=== PATIENT | female | born 1995 | race Caucasian/White ===

== ENCOUNTER 2023-12-31 10:16 | Observation (INO) | payer OTHER ==
[~2023-12-31] VITALS: Ht 144.8 cm; Wt 64.5 kg
[2023-12-31] MEDS: HEPARIN SOD (PORCINE) 5000UNITS/ML 1ML VIAL/SYRINGE SQ ONE (06:55)
[~2023-12-31 10:16] MED LIST: BUPR150T12 PO; BUSP5TA PO; FLUO20CA22 PO; LISD30CA PO; LOVE1INJ2 SC
[2023-12-31] MEDS ORDERED: LR 1,000 ML IV SCH (10:35)
[2023-12-31] MEDS ORDERED: dexmedeTOMIDine (4MCG/ML)200MCG/50ML BTL (PRECEDEX) As Ordered ONE (12:23)
[2023-12-31] MEDS ORDERED: propofoL 200 MG/20 ML VIAL As Ordered ONE (12:23)
[2023-12-31] MEDS ORDERED: ROCURONIUM BROMIDE 50MG/5ML VIAL As Ordered ONE (12:23)
[2023-12-31] MEDS ORDERED: MIDAZOLAM INJ 2MG/2ML VIAL As Ordered ONE (12:23)
[2023-12-31] MEDS ORDERED: LIDOCAINE 2% 100MG/5ML SDV (FOR ANES.) As Ordered ONE (12:23)
[2023-12-31] MEDS ORDERED: fentaNYL 250 MCG/5 ML INJECTION As Ordered ONE (12:23)
[2023-12-31] MEDS ORDERED: ONDANSETRON 4MG 2ML VIAL As Ordered ONE (12:23)
[2023-12-31] MEDS ORDERED: SEVOFLURANE INHAL SOLN 250 ML BTL As Ordered ONE (13:11)
[2023-12-31] MEDS: SCOPOLAMINE 1MG TRANSDERMAL PATCH TOP ONE (13:20)
[2023-12-31] MEDS: ceFAZolin SOD 2 GM in IV 1 EA IV ONE (14:04)
[2023-12-31] MEDS: GENTAMICIN SULF 80MG/2ML VIAL As Ordered ONE (14:21)
[2023-12-31] MEDS ORDERED: LACRILUBE (AKWA TEARS) OPHTH OINT 3.5GM As Ordered ONE (14:27)
[2023-12-31] MEDS ORDERED: ACETAMINOPHEN 1000MG 100ML IV BAG As Ordered ONE (14:27)
[2023-12-31] MEDS ORDERED: HYDROmorphone HCL 2MG/ML 1ML VIAL As Ordered ONE (14:58)
[2023-12-31] MEDS ORDERED: SUGAMMADEX SODIUM 500 MG/5 ML VIAL (BRIDION) As Ordered ONE (14:58)
[2023-12-31] MEDS ORDERED: fentaNYL 100 MCG/2 ML INJECTION IV PRN (17:35)
[2023-12-31] MEDS ORDERED: HYDROMORPHONE HCL 0.5 MG/ 0.5 ML SYRINGE IV PRN (17:35)
[2023-12-31] MEDS ORDERED: oxyCODONE 5MG TAB PO PRN (17:35)
[2023-12-31] MEDS ORDERED: ACETAMINOPHEN TAB 650MG DOSE (2X325MG) PO PRN (17:55)
[2023-12-31] MEDS ORDERED: traMADol 50 MG TAB PO PRN (17:55)
[2023-12-31] MEDS: ONDANSETRON 4MG 2ML VIAL IV PRN ×2 (18:43→22:40)
[2023-12-31] MEDS: LR 1,000 ML IV SCH ×2 (18:46→20:34)
[2023-12-31 20:30] VITALS: BP 132/70; TEMP 97; O2SAT 97
[2023-12-31 20:45] VITALS: BP 117/79; TEMP 97.2; O2SAT 96
[2023-12-31] MEDS: ceFAZolin SOD 1 GM in D5W MINI-BAG PLUS 50 ML IV SCH (20:46)
[2023-12-31] MEDS: ENOXAPARIN 40MG/0.4ML SYRINGE (J1650 PER 10MG) SC SCH (20:47)
[2023-12-31] MEDS: PERCOCET 5MG/325MG TAB PO PRN (20:52)
[2023-12-31 21:46] VITALS: BP 121/77; TEMP 97; O2SAT 96
[2023-12-31 22:45] VITALS: BP 116/72; TEMP 97.2; O2SAT 97
[2023-12-31 23:45] VITALS: BP 112/71; TEMP 97.3; O2SAT 96
[2024-01-01 00:47] VITALS: BP 107/69; TEMP 97.6; O2SAT 95
[2024-01-01 01:47] VITALS: BP 107/69; TEMP 97.2; O2SAT 97
[2024-01-01 02:48] VITALS: BP 109/69; TEMP 97; O2SAT 97
[2024-01-01 03:48] VITALS: BP 124/80; TEMP 97.8; O2SAT 98
[2024-01-01 06:19] VITALS: BP 108/75; TEMP 97.8; O2SAT 97
[2024-01-01] MEDS ORDERED: PERCOCET PO (13:14)
== END 2024-01-01 14:25 | disposition home or self-care (01) ==
LOC: M SDC 10:16 → M RR INP 18:00 → M MS5PR 20:15
PROVIDERS: ADMIT Plastic Surgery Surgery of the Hand; ATTEND Plastic Surgery Surgery of the Hand
DX: N62 Hypertrophy of breast (principal); M54.6 Pain in thoracic spine; M54.2 Cervicalgia; D68.2 Hereditary deficiency of other clotting factors; F90.9 Attention-deficit hyperactivity disorder, unspecified type; Z88.2 Allergy status to sulfonamides; Z79.899 Other long term (current) drug therapy
CPT/HCPCS: 19318; 81025; 88302; 96372; 96374; 96375; 96376; C9290; J0131; J0665; J0690; J1100; J1170; J1580; J1650; J2250; J2405; J3010